=== PATIENT | female | born 1960 | race Caucasian/White ===

== ENCOUNTER 2016-09-16 05:18 | Emergency (ER) | payer OTHER ==
--- NOTE | ~2016-09-16 | ST ---
Unit #: [id number] #: [id number] Patient: BHAVNA BISHOP [id number] [address] [address] [id number] E MR#: [id number] NAME: BHAVNA BISHOP. : 1960 SEX: F STUDY DATE/TIME: 09/16/2016 UNIT: [facility] ROOM: STUDY DESCRIPTION: Exercise stress test Attending Physician: Steve Navarro D.O. Primary Care Physician: Fritz Eastman M.D. CARDIOLOGY REPORT PROCEDURE PERFORMED Exercise Cardiolite stress test. PROCEDURE BASELINE EKG: Normal sinus rhythm with ventricular rate 61 beats per minute, poor R wave progression, RSR-1 prime in inferior leads, nondiagnostic Q waves in inferolateral leads. The patient walked on the treadmill for 7 minutes and 30 seconds utilizing the Homar protocol, achieving a workload of 9.3 METS. She achieved 85% of the maximum heart rate at 141 beats per minute with a blood pressure response of 174/94 mmHg. EKG during the test showed some nonspecific ST-T wave abnormalities, nothing acute. It was noted that it had a ventricular pair immediately in recovery phase; otherwise, no arrhythmias. IMPRESSION 1. Functional class 3 with a workload of 9.3 METS. 2. Patient walked for 7 minutes and 30 seconds achieving 85% of maximum target heart rate at 141 beats per minute with a maximum blood pressure response of 174/94 mmHg. 3. EKG during the test showed some nonspecific ST-T wave abnormalities, nothing acute. It was noted that it had a ventricular pair immediately in recovery phase; otherwise, not arrhythmias. 4. The patient had no complaints of chest pain, palpitations or dizziness. Had increased shortness of breath and fatigue, which resolved in recovery phase. 5. Cardiolite was injected at maximum target heart rate. Radionuclide test pending. Please correlate with nuclear images. Dictated by... Elisa Mendieta A.P.R.N. for Sami Hayden/maria teresa TD: 09/17/2016 08:01 JOB #: [id number] Unit #: [id number] #: [id number] Patient: BHAVNA BISHOP CARDIOLOGY REPORT Page 1 of 1 X Elisa Mendieta APRN CARDIOLOGY REPORT
--- NOTE | ~2016-09-16 | HP ---
Unit #: [id number] #: [id number] Patient: BHAVNA BISHOP [id number] [address] [place], [place] [address] [id number] E MR#: [id number] NAME: BHAVNA BISHOP ROOM: Age: 55 Sex: F Admission Date: 09/16/2016 : 1960 Attending Physician: Steve Navarro D.O. Primary Care Physician: Fritz Eastman M.D. HISTORY AND PHYSICAL HISTORY OF PRESENT ILLNESS This is a very pleasant 55-year-old female with a past medical history of paroxysmal atrial fibrillation. She has been maintained on Metoprolol and flecainide and follows with Dr. Melendez in the office. She also has a past medical history of hyperlipidemia, diverticulitis status post colon resection and hypothyroidism. The patient reports yesterday she felt her heart skipping some beats. It lasted only for a few seconds to minutes and resolved. She went about her normal daily activities. Then, again last night about 3:30 in the morning she woke up with complaints of her heart beating funny. This was associated with some substernal chest pressure and fatigue, as well as nausea. She denied any complaints of shortness of breath or diaphoresis and denies any radiation of the pressure. These episodes were lasting approximately 5-10 minutes and resolving spontaneously. Therefore, the patient came to the emergency room for further evaluation. Initial EKG shows normal sinus rhythm, rate of 64 beats per minute, QTc interval of 437 msec. No acute ischemic change. Yextv-oq-yhbb troponin, thus, far has been negative. At present she is resting in bed. She is in no acute distress. She does report she has had a couple episodes of the substernal chest pressure in the emergency room. The episodes have been fleeting. She denies any previous ischemic workup. PAST MEDICAL HISTORY 1. Paroxysmal atrial fibrillation, maintained on Metoprolol and flecainide. 2. Hyperlipidemia. 3. Diverticulitis status post colon resection. 4. Hypothyroidism, followed by Dr. Rizvi. 5. Two-D echocardiogram 11/27/2015 shows LVEF of 65%, mild mitral regurgitation, [id number] tricuspid regurgitation, RVSP of 30 mmHg. No evidence of pericardial effusion. PAST SURGICAL HISTORY 1. Right leg vein stripping. 2. Hysterectomy. 3. Cholecystectomy. 4. Colon resection. HOME MEDICATIONS 1. Metoprolol 25 mg p.o. b.i.d. 2. Flecainide 50 mg p.o. b.i.d. 3. Atorvastatin 10 mg p.o. q.h.s. Unit #: [id number] #: [id number] Patient: BHAVNA BISHOP 4. Methimazole 5 mg p.o. daily. 5. Aspirin 81 mg p.o. daily. 6. Vitamin D 1,000 units p.o. daily. 7. Multivitamin 1 tab p.o. daily. ALLERGIES Promethazine. SOCIAL HISTORY The patient lives in a private residence with her . 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 She is a lifetime nonsmoker. Denies illicit drugs or alcohol use. FAMILY HISTORY Mother has atrial fibrillation. No known coronary artery disease in first-degree relatives. REVIEW OF SYSTEMS A 10-point review of systems is negative except for details stated above in the HPI. PHYSICAL EXAM VITAL SIGNS: Temperature 98.3, respiratory rate 18, pulse 68, blood pressure 102/59. GENERAL: This is a pleasant female in no acute distress, examined in room T7 in the emergency room. HEENT: Head is atraumatic, normocephalic. Pupils are equal and round. NECK: Trachea is midline. Normal carotid upstrokes. No bruits auscultated. No JVD. No lymphadenopathy. HEART: S1, S2. Regular rate and rhythm. No murmur, gallop or rub. LUNGS: Clear to auscultation. No adventitious breath sounds. No rales. No rhonchi. No wheezes. ABDOMEN: Soft, nontender, nondistended. Bowel sounds are present. EXTREMITIES: Pulses are palpable. No clubbing, cyanosis or edema. NEUROLOGIC: The patient is awake, alert and oriented x3. She moves all extremities equally. She follows commands with ease. DIAGNOSTIC STUDIES LABORATORY: Sodium 140, potassium 3.8, chloride 106, CO2 24, BUN 15, creatinine 0.8, glucose 122. Hemoglobin 15.2, hematocrit 44.5, WBC 5.9, platelet count 187. IMAGING: Chest x-ray reveals no acute findings. CARDIOVASCULAR: EKG shows normal sinus rhythm, rate of 64 beats per minute. No acute ischemic changes noted. QTc interval 437 msec. IMPRESSION 1. Probable paroxysmal supraventricular tachycardia. 2. Chest pains, atypical for ischemic heart disease. 3. Hyperlipidemia. 4. Obesity. 5. Hypothyroidism, followed by Dr. Rizvi. 6. Left ventricular ejection fraction 65%. Omfq-oh-sdicfujz tricuspid regurgitation. Right ventricular systolic pressure of 30 mmHg per echo in November 2015. PLAN Unit #: [id number] #: [id number] Patient: BHAVNA BISHOP The patient has been admitted for atypical chest pain, as well as palpitations. She has a history of paroxysmal atrial fibrillation. [id number] is 1. She has been maintained on flecainide and Metoprolol. The patient has not had ischemic workup up to this point. Thus far her troponins have been negative. Her EKG is within normal limits. Will plan to check TSH and T4 now. Will check a troponin STAT x1 and plan to schedule for exercise Cardiolite scan today. If her exercise Cardiolite is normal, she will be discharged home today. Patient also may benefit from outpatient Holter monitor if rhythm issues continue. Dictated by Verna Mcrae A.P.R.N. for Sami Licona/maria teresa TD: 09/16/2016 11:22 JOB #: [id number] HISTORY AND PHYSICAL Page 1 of 1 X Verna Mcrae APRN X HISTORY AND PHYSICAL
--- NOTE | ~2016-09-16 | EKG ---
PATIENT: BHAVNA BISHOP UNIT #: [id number] Ventricular Rate: 64 BPM Atrial Rate: 64 BPM P-R Interval: 162 ms QRS Duration: 88 ms Q-T Interval: 424 ms QTC Calculation(Bezet): 437 ms P Cordova: 68 degrees Calculated R Cordova: 26 degrees Calculated T Cordova: 41 degrees Diagnosis Line: Normal sinus rhythm Diagnosis Line: Normal ECG Diagnosis Line: When compared with ECG of 16-SEP-2016 05:23, Diagnosis Line: (unconfirmed) Diagnosis Line: No significant change was found Diagnosis Line: Confirmed by SERGIO CASH MD ([id number]) on 09/17/2016 Diagnosis Line: 7:31:13 PM INTERPRETING MD: SHAILESH RAY
--- NOTE | ~2016-09-16 | CR72 ---
[facility] A Service of [facility] & [facility] RADIOLOGY TEXT RESULTS PATIENT: BHAVNA BISHOP LOCATION: [facility] : 58 UNIT #: [id number] AGE: [address]: Steve Navarro DO SEX: F ORDER DR: [id number] [facility] [address] [facility] [place], [place] [address] [id number] E MR#: [id number] Acc #: [id number] NAME: BHAVNA BISHOP : 1960 SEX: F STUDY DATE/TIME: 09/16/2016 6:41 UNIT: [facility] ROOM: STUDY DESCRIPTION: CR Chest Single View Portable Attending Physician: Steve Navarro D.O. Ordering Physician: Steve Navarro D.O. Primary Care Physician: Fritz Eastman M.D. MEDICAL IMAGING REPORT This report is preliminary unless electronic signature is present EXAM Portable chest. HISTORY Shortness of air and chest pressure earlier today. COMPARISON 12/05/2015 FINDINGS A portable view of the chest was obtained. The heart size and vascularity are normal and the lungs are clear and the bones normal. IMPRESSION No active disease. Dictated by... Avinash Welch M.D. THIS IS AN ELECTRONICALLY VERIFIED REPORT Avinash Welch M.D. at 09/16/2016 2:51 PM RENAN/joe TD: 09/16/2016 11:20 JOB #: [id number] MEDICAL IMAGING REPORT Page 1 of 1 COPY
--- NOTE | ~2016-09-16 | TH ---
Unit #: [id number] #: [id number] Patient: BHAVNA BISHOP [id number] [address] [address] [id number] E MR#: [id number] NAME: BHAVNA BISHOP : 1960 SEX: F STUDY DATE/TIME: 09/16/2016 UNIT: [facility] ROOM: STUDY DESCRIPTION: Exercise stress test - Nuclear Attending Physician: Steve Navarro D.O. Primary Care Physician: Fritz Eastman M.D. CARDIOLOGY REPORT PROCEDURE PERFORMED Exercise Cardiolite stress test - Nuclear portion. PROCEDURE Using technetium 99m-labeled Cardiolite, rest and stress SPECT images were obtained. Multiple SPECT images were obtained in various views, including horizontal and vertical long axis and short axis views of the left ventricle. Images were obtained by gated SPECT method. The patient was administered 10.24 mCi of Cardiolite at rest. The patient was administered 29.7 mCi of Cardiolite at peak exercise. Total exercise time is 7 minutes and 30 seconds. On the stress images, there is normal perfusion noted. The rest images show normal perfusion. Comparing the rest and stress images, there is no stress-induced ischemia noted. The left ventricular ejection fraction is calculated to be 64%. There is no focal wall motion abnormality seen. CONCLUSION 1. No stress-induced ischemia noted. 2. The left ventricular ejection fraction is calculated to be 64%. 3. There is no focal wall motion abnormality seen. 4. Normal exercise Cardiolite stress test. Dictated by... Sami Hayden/maria teresa TD: 09/17/2016 08:08 JOB #: [id number] CARDIOLOGY REPORT Page 1 of 1 X Myra Lambert MD <ELECTRONICALLY SIGNED> 11/06/16 1524 CARDIOLOGY REPORT
[~2016-09-16 05:18] MED LIST: ASPIRIN81 M1 PO; ASPIRIN81 M2 PO; ASPIRINEC PO; AUGMENTIN PO; CERTAGEN PO; DOXYCYCLINE PO; FENOFIBRATE160 MG PO; FLAGYL PO; FLAGYL250 M1 PO; FLECAINIDE ACET50 MG PO; LEVAQUIN PO; LIPITOR80 MG PO; LOPRESSOR PO; LORTAB 7.5-5001 TAB PO; LORTAB 7.51 TAB 7.5/ PO; METHIMAZOLE10 MG PO; PERCOCET5/325 PO; PRAVACHOL PO; PRAVACHOL20 MG PO; PRAVASTATIN SOD20 MG PO; TRICOR PO; ZOFRAN PO
[2016-09-16 06:53] LABS: BASOPHIL% 0.6 % (0-2.5); EOSINOPHIL# 0.1 X10e3 (0-0.7); EOSINOPHIL% 2.3 % (0.0-7.0); HEMATOCRIT 44.5 % (35.0-45.0); HEMOGLOBIN 15.2 gm/dL (12.0-16.0); LYMPHOCYTE# 1.8 X10e3 (1.0-3.5); LYMPHOCYTE% 30.3 % (17.0-45.0); MEAN CELL VOLUME 89.1 FL (83-96); MEAN CORPUSCULAR HEMOGLOBIN 30.4 PG (28-34); MEAN CORPUSCULAR HGB CONC 34.1 g/dL (30-36); MEAN PLATELET VOLUME 8.8 FL (6.5-11.5); MONOCYTE# 0.8 X10e3 (0-1.0); MONOCYTE% 14.4 % (3.0-12.0); NEUTROPHIL# 3.1 X10e3 (1.5-7.1); NEUTROPHIL% 52.4 % (40-75); PLATELET COUNT 187 X10e3 (140-420); RED BLOOD COUNT 4.99 X10e (3.90-5.30); RED CELL DISTRIBUTION WIDTH 13.5 % (11.0-15.5); WHITE BLOOD COUNT 5.9 X10e3 (4.0-10.5)
[2016-09-16 06:57] LABS: POC - CKMB 1.3 ng/mL (0.0-7.9); POC - TROPONIN <0.05 ng/mL (<=0.05)
[2016-09-16 07:14] LABS: DIFF IND NO
[2016-09-16 07:29] LABS: PARTIAL THROMBOPLASTIN TIME 24.6 SECONDS (23.5-31.3); PROTHROMBIN TIME (PATIENT) 10.5 SECONDS (10.0-11.7)
[2016-09-16 07:33] LABS: ALBUMIN SERUM 4.1 g/dL (3.5-5.0); BILIRUBIN, DIRECT 0.1 mg/dL (0.0-0.2); BILIRUBIN,INDIRECT 0.6 mg/dL (0.0-0.9); BILIRUBIN,TOTAL 0.7 mg/dL (0.2-2.0); BUN/CREATININE RATIO 18.75; CALCIUM SERUM 9.1 mg/dL (8.4-10.2); CREATININE SERUM 0.8 mg/dL (0.6-1.4); GLOM FILT RATE Estimated 82.5 mL/min (>60); POTASSIUM 3.8 mmol/L (3.5-5.1)
[2016-09-16 08:31] LABS: POC - CKMB 1.2 ng/mL (0.0-7.9); POC - TROPONIN <0.05 ng/mL (<=0.05)
[2016-09-16] MEDS ORDERED: ATORVASTATIN CA10 MG PO (08:34)
[2016-09-16] MEDS ORDERED: METOPROLOL TART25 MG PO (08:34)
[2016-09-16] MEDS ORDERED: FLECAINIDE ACET50 MG PO (08:34)
[2016-09-16] MEDS ORDERED: ASPIRIN81 MG PO (08:35)
[2016-09-16] MEDS ORDERED: METHIMAZOLE5 MG PO (08:35)
[2016-09-16] MEDS ORDERED: MULTI VITAMIN1 EACH PO (08:36)
[2016-09-16] MEDS ORDERED: VITAMIN D1000 UNI1 PO (08:36)
[2016-09-16 11:36] LABS: THYROID STIMULATING HORMONE 1.06 uIU/ml (0.34-5.60)
[2016-09-16 11:43] LABS: FREE THYROXIN (T4) 0.82 ng/dL (0.58-1.64)
== END 2016-09-16 14:29 | disposition home or self-care (01) ==
LOC: CED 05:18
PROVIDERS: Emergency Medicine; Internal Medicine Cardiovascular Disease
DX: R07.89 Other chest pain (principal); E78.5 Hyperlipidemia, unspecified; I10 Essential (primary) hypertension; Z90.49 Acquired absence of other specified parts of digestive tract; Z90.710 Acquired absence of both cervix and uterus; Z88.1 Allergy status to other antibiotic agents; Z79.82 Long term (current) use of aspirin; Z79.899 Other long term (current) drug therapy
CPT/HCPCS: 36415; 71010; 78452; 80048; 80076; 82553; 84439; 84443; 84484; 85025; 85610; 85730; 93005; 93017; 99285; A9500